=== PATIENT | female | born 1990 | race Caucasian/White ===

== ENCOUNTER 2017-07-08 14:18 | Emergency (ER) | payer OTHER ==
[~2017-07-08] VITALS: Ht 152.4 cm; Wt 59.6 kg
[2017-07-08] MEDS ORDERED: MOTRIN400 MG PO (17:48)
[2017-07-08 17:50] VITALS: BP 130/88
== END 2017-07-08 17:50 | disposition home or self-care (01) | DRG 552 ==
LOC: ED 14:18
DX: M54.5 Low back pain (principal); M25.561 Pain in right knee; F17.210 Nicotine dependence, cigarettes, uncomplicated; X58.XXXA Exposure to other specified factors, initial encounter